=== PATIENT | female | born 1970 | race American Indian/Alaskan Native ===

== ENCOUNTER 2020-09-13 15:30 | Emergency (ER) | payer SELFPAY ==
--- NOTE | 2020-09-13 15:51 | Emergency Department Report ---
ED CPR HPI - General Chief Complaint: Cardiac Arrest/CPR Stated Complaint: CARDIAC ARREST Time Seen by Provider: 09/13/20 15:46 - History of Present Illness Initial Comments: Patient is 49 years old female with history of diabetes. Patient brought to the emergency room via EMS from home in a full cardiac arrest, CPR in progress. EMS stated that when arrived to the scene the patient was sitting on the ground with altered mental status. EMS stated that as soon as they moved patient to the ambulance patient lost her pulse. ACLS protocol immediately started by EMS and patient intubated. Upon arrival to the ER, ACLS protocol continued. A confirmed tube placement with good breath sound on both sides. I inserted a IO to the left tibia and patient received epinephrine and sodium bicarb. Accu-Chek showed a blood glucose of 320. Initial rhythm was asystole change to PEA. Unfortunately patient remained in PEA. Patient pronounced at 3:42 PM. Total resuscitation time is 35 minutes. For further information please refer to code sheets. MD Complaint: collapsed during rest Place: home Bystander CPR Performed: Yes AED Applied by Bystander/Director [employer]: No Shock Advised: No Initial Findings in the Field: no pulse, systole ROSC in the Field: No Associated Injuries: No Associated Symptoms: chest pain Treatments Prior to Arrival: intubation, chest compressions ED Review of Systems ROS: Stated complaint: CARDIAC ARREST Other details as noted in HPI Comment: Unobtainable due to pts medical conditions ED Physical Exam - General General appearance: other (CPR in progress.) - Head Head exam: Present: atraumatic, normocephalic, normal inspection - Eye Pupils: Present: other (4 mm fixed and dilated.) - ENT ENT exam: Present: mucous membranes moist - Neck Neck exam: Present: normal inspection - Respiratory Respiratory exam: Present: other (No spontaneous breathing.) - Cardiovascular Cardiovascular Exam: Present: other (No spontaneous heart tone.) - GI/Abdominal GI/Abdominal exam: Present: soft - Neurological Exam Neurological exam: Present: other (CPR in progress.) - Skin Skin exam: Present: warm, dry, intact Critical Care Time: Yes Critical care time in (mins) excluding proc time.: 30 Critical care attestation.: If time is entered above; I have spent that time in minutes in the direct care of this critically ill patient, excluding procedure time. ED Disposition Clinical Impression: Cardiopulmonary arrest Disposition: DC-20 Is pt being admited?: No Condition: Stable
[2020-09-13] MEDS ORDERED: CALCIUM CHLORIDE 1,000 MG/10 ML SYRINGE IV ONE (21:48)
[2020-09-13] MEDS ORDERED: EPINEPHrine 1 MG/10 ML SYRINGE ONE (21:48)
== END 2020-09-13 22:50 ==
LOC: ED 15:30
DX: I46.9 Cardiac arrest, cause unspecified (principal); Z79.899 Other long term (current) drug therapy
CPT/HCPCS: 92950; 99285; J0171